=== PATIENT | male | born 1955 | race Caucasian/White ===

== ENCOUNTER 2020-12-09 19:30 | Outpatient (CLI) | payer MEDICARE | END 2020-12-09 19:31 | disposition home or self-care (01) | LOC: SLEEPLAB 19:30 | PROVIDERS: ATTEND Internal Medicine Pulmonary Disease | DX: G47.33 Obstructive sleep apnea (adult) (pediatric) (principal); R53.83 Other fatigue; R09.89 Other specified symptoms and signs involving the circulatory and respiratory systems; E66.9 Obesity, unspecified; R06.83 Snoring; Z68.30 Body mass index [BMI] 30.0-30.9, adult | CPT/HCPCS: 95810 ==

== ENCOUNTER 2020-12-24 19:30 | Outpatient (CLI) | payer MEDICARE | END 2020-12-24 19:31 | disposition home or self-care (01) | LOC: SLEEPLAB 19:30 | PROVIDERS: ATTEND Internal Medicine Pulmonary Disease | DX: G47.33 Obstructive sleep apnea (adult) (pediatric) (principal); R53.83 Other fatigue; E66.9 Obesity, unspecified; R06.83 Snoring | CPT/HCPCS: 95811 ==